=== PATIENT | female | born 1935 | race Two or more races ===

== ENCOUNTER 2023-09-07 06:24 | Emergency (ER) | payer OTHER ==
[~2023-09-07] VITALS: Ht 170.2 cm; Wt 86.2 kg
[2023-09-07] MEDS ORDERED: SYNTHROID88 MCG (06:33)
[2023-09-07] MEDS ORDERED: ZYRTEC10 MG (06:34)
== END 2023-09-07 09:48 | disposition home or self-care (01) ==
LOC: ER 06:25
DX: J06.9 Acute upper respiratory infection, unspecified (principal); Z20.822 Contact with and (suspected) exposure to COVID-19

== ENCOUNTER 2024-05-22 06:56 | Emergency (ER) | payer OTHER ==
[~2024-05-22] VITALS: Ht 160 cm; Wt 85.3 kg
[~2024-05-22 06:56] MED LIST: NEURONTIN600 M1 PO; SYNTHROID88 MCG; ZYRTEC10 MG
[2024-05-22 09:50] LABS: HEMATOCRIT 37.9 % (36.0-45.00); HEMOGLOBIN 12.9 g/dL (12.0-15.00); MEAN CELL VOLUME 92.4 fL (80.00-100.00); MEAN CORPUSCULAR HEMOGLOBIN 31.5 pg (27.00-32.0); PLATELET COUNT 329 K/uL (150-450); RED CELL DISTRIBUTION WIDTH 13.3 % (11.5-14.5)
[2024-05-22 09:55] LABS: CALCIUM 9.4 mg/dL (8.5-10.1); CREATININE SERUM 0.92 mg/dL (0.55-1.02); GFR 57.48; POTASSIUM 4.18 mEq/L (3.5-5.1)
== END 2024-05-22 11:32 | disposition home or self-care (01) ==
LOC: ER 06:57
PROVIDERS: General Practice
DX: J06.9 Acute upper respiratory infection, unspecified (principal); R05.8 Other specified cough; J40 Bronchitis, not specified as acute or chronic; Z20.822 Contact with and (suspected) exposure to COVID-19

== ENCOUNTER 2024-05-31 08:04 | Emergency (ER) | payer OTHER ==
[~2024-05-31] VITALS: Ht 165.1 cm; Wt 81.6 kg
[2024-05-31] MEDS ORDERED: HYDROCODONE/CHLORPHEN P-STIREX 5 ML ML PO STA (09:02)
[2024-05-31 09:46] LABS: ABG PH 7.368 (7.35-7.45); ABG PO2 85.9 mmHg (80-100); ABG pCO2 51.5 mmHg (35-45); BASE EXCESS 2.6 mmol/l; SaO2 96.2 %; Tco2 30.6 mmol/l
[2024-05-31 10:35] LABS: HEMATOCRIT 38.7 % (36.0-45.00); HEMOGLOBIN 13.2 g/dL (12.0-15.00); MEAN CELL VOLUME 93.4 fL (80.00-100.00); MEAN CORPUSCULAR HEMOGLOBIN 31.8 pg (27.00-32.0); PLATELET COUNT 287 K/uL (150-450); RED BLOOD COUNT 4.15 M/uL (4.00-6.00)
[2024-05-31 11:11] LABS: CALCIUM 9.1 mg/dL (8.5-10.1); CREATININE SERUM 0.91 mg/dL (0.55-1.02); GFR 58.21; POTASSIUM 3.97 mEq/L (3.5-5.1)
[2024-05-31 11:55] LABS: allen test SATISFACTORY; o2 21 %; puncture site RADIAL LEFT
== END 2024-05-31 11:22 | disposition home or self-care (01) ==
LOC: ER 08:06
PROVIDERS: General Practice
DX: J40 Bronchitis, not specified as acute or chronic (principal); R05.9 Cough, unspecified; E03.8 Other specified hypothyroidism

== ENCOUNTER 2024-06-23 08:44 | Emergency (ER) | payer OTHER ==
[~2024-06-23] VITALS: Ht 165.1 cm; Wt 79.4 kg
[2024-06-23 11:12] VITALS: BP 123/73; O2SAT 97
== END 2024-06-23 11:13 | disposition home or self-care (01) ==
LOC: ER 08:46
DX: S09.8XXA Other specified injuries of head, initial encounter (principal); W18.39XA Other fall on same level, initial encounter; Y93.89 Activity, other specified; Y92.89 Other specified places as the place of occurrence of the external cause; Y99.8 Other external cause status; E03.8 Other specified hypothyroidism

== ENCOUNTER 2025-01-24 13:46 | Emergency (ER) | payer OTHER ==
[~2025-01-24] VITALS: Ht 165.1 cm; Wt 72.6 kg
[2025-01-24] MEDS ORDERED: GUAIFENESIN/DEXTROMETHORPHAN 100MG/10ML BLIST.PACK PO STA (16:34)
[2025-01-24] MEDS ORDERED: ALBUTEROL SULFATE 3 ML/2.5 MG AMPUL.NEB IH STA ×2 (16:35→23:57)
[2025-01-24] MEDS ORDERED: IPRATROPIUM BROMIDE 0.5 MG/2.5 ML AMPUL.NEB IH STA ×2 (16:35→23:58)
[2025-01-24] MEDS ORDERED: METHYLPREDNISOLONE SOD SUCC 40 MG VIAL IV STA (16:36)
[2025-01-24] MEDS ORDERED: IPRATROPIUM BROMIDE 0.5 MG/2.5 ML AMPUL.NEB IH ONE ×2 (16:39→23:59)
[2025-01-24] MEDS ORDERED: ALBUTEROL SULFATE 3 ML/2.5 MG AMPUL.NEB IH ONE (16:39)
[2025-01-24] MEDS ORDERED: GUAIFENESIN/DEXTROMETHORPHAN 100MG/10ML BLIST.PACK PO ONE (16:40)
[2025-01-24] MEDS ORDERED: METHYLPREDNISOLONE SOD SUCC 40 MG VIAL ONE (16:40)
[2025-01-24 17:01] LABS: BASO % 0.3 % (0.1-1.2); EOS % 1.7 % (0.7-7.0); HEMOGLOBIN 13.4 g/dL (11.2-15.7); LYMPH # 2.45 (1.18-3.74); MEAN CORPUSCULAR HEMOGLOBIN 30.9 pg (25.6-32.2); MONO # 0.63 (0.24-0.82); MONO % 10.8 % (4.7-12.5); NEUT # 2.62 (1.56-6.13); PLATELET COUNT 214 K/uL (163-369); RED BLOOD COUNT 4.33 M/uL (3.93-5.22)
[2025-01-24 17:17] LABS: ABG PH 7.363 (7.35-7.45); ABG PO2 74.5 mmHg (80-100); BASE EXCESS -1.2 mmol/l; BICARBONATE 24.4 mmol/l (23-25); SaO2 94.1 %; Tco2 25.8 mmol/l
[2025-01-24 17:29] LABS: ALBUMIN 3.4 gm/dL (3.4-5.0); BILIRUBIN TOTAL 0.29 mg/dL (0.3-1.2); CALCIUM 9.1 mg/dL (8.5-10.1); CREATININE SERUM 0.99 mg/dL (0.55-1.02); GFR 52.81; GLOBULINA 4.7 G/DL (2.4-3.5); TOTAL PROTEIN 8.1 gm/dL (6.4-8.2)
[2025-01-24 17:40] LABS: INFLUENZA A AG NEGATIVE (NEGATIVE); INFLUENZA B AG NEGATIVE (NEGATIVE)
[2025-01-24 17:41] LABS: COVID-19 AG NEGATIVE (NEGATIVE)
[2025-01-24 18:58] LABS: allen test SATISFACTORY; mode ROOM AIR; o2 21 %; puncture site RADIAL RIGHT
[2025-01-24] MEDS ORDERED: IPRATROPIUM BROMIDE 0.5 MG/2.5 ML AMPUL.NEB IH SCH (21:15)
[2025-01-24] MEDS ORDERED: ALBUTEROL SULFATE 3 ML/2.5 MG AMPUL.NEB IH SCH (21:15)
[2025-01-24] MEDS ORDERED: LEVALBUTEROL HCL 0.63 MG/3 ML SOLUTION IH ONE (23:59)
[2025-01-25] MEDS ORDERED: BUDESONIDE0.5 MG/2 M IH (02:30)
[2025-01-25] MEDS ORDERED: ZYNCOF 20-400120 ML PO (02:30)
[2025-01-25] MEDS ORDERED: LEVALBUTER0.63 MG/3 IH (02:30)
[2025-01-25] MEDS ORDERED: ZITHROMAX500 MG PO (02:31)
== END 2025-01-25 02:35 ==
LOC: ER 14:09
PROVIDERS: General Practice
DX: J06.9 Acute upper respiratory infection, unspecified (principal); E05.90 Thyrotoxicosis, unspecified without thyrotoxic crisis or storm; Z20.822 Contact with and (suspected) exposure to COVID-19